=== PATIENT | male | born 1985 | race Caucasian/White ===

== ENCOUNTER 2016-07-04 16:14 | Emergency (ER) | payer BC ==
[2016-07-04 17:12] VITALS: BP 121/73
--- NOTE | 2016-07-04 17:27 | UC ---
Throat Pain/Nasal Lucien HPI - HPI Summary HPI Summary: ST, sinus congestion, productive cough. STarted 10 days ago, was getting better , then worsened 2d ago. Fever to 101. Fatigue, body aches, malaise. Kids ill at home. No asthma. Smoker, quit 3 weeks ago. No vomiting or diarrhea - History of Current Complaint Chief Complaint: UCRespiratory Stated Complaint: FLU LIKE SYMPTOMS, SORE THROAT Time Seen by Provider: 07/04/16 17:15 Hx Obtained From: Patient Onset/Duration: Gradual Onset, Lasting Days - 10 Severity: Moderate Cough: Productive Associated Signs & Symptoms: Positive: Dysphagia, Hoarseness, Sinus Discomfort, Nasal Discharge, Fever. Negative: FB Sensation, Drooling, Vomiting, Rash - Epiglottits Risk Factors Epiglottis Risk Factors: Negative - Allergies/Home Medications Allergies/Adverse Reactions: Allergies Allergy/AdvReac Type Severity Reaction Status Date / Time Meperidine [From Demerol HCl] Allergy Unknown Verified 07/04/16 17:06 Reaction Details Home Medications: Home Medications Acetaminophen [Tylenol] 650 mg PO Q4H PRN 07/04/16 [History Confirmed 07/04/16] Dextromethorphan-Phenylephrine [Daytime Multi Symptom Col] 1 cap PO BID PRN 09/15 [History Confirmed 07/04/16] PMH/Surg Hx/FS Hx/Imm Hx Previously Healthy: Yes - Surgical History Surgical History: Yes Surgery Procedure, Year, and Place: knee. wrist - Family History Known Family History: Positive: Hypertension - Social History Occupation: Employed Full-time Lives: With Family Alcohol Use: Occasionally Substance Use Type: None Smoking Status (MU): Former Smoker Type: Cigarettes When Did the Patient Quit Smoking/Using Tobacco: 3 weeks ago - Immunization History Most Recent Influenza Vaccination: 2016 Review of Systems Constitutional: Fever, Chills, Fatigue Skin: Negative Eyes: Negative ENT: Sore Throat, Ear Ache, Nasal Discharge Respiratory: Cough Cardiovascular: Negative Gastrointestinal: Negative Genitourinary: Negative Motor: Negative Neurovascular: Negative Musculoskeletal: Negative Neurological: Negative Psychological: Negative All Other Systems Reviewed And Are Negative: Yes Physical Exam Triage Information Reviewed: Yes Appearance: Well-Appearing, No Pain Distress, Well-Nourished Vital Signs: Initial Vital Signs Temp 97.9 F 07/04/16 17:07 Pulse 68 07/04/16 17:07 Resp 18 07/04/16 17:07 BP 121/73 07/04/16 17:07 Pulse Ox 97 07/04/16 17:07 Vital Signs Reviewed: Yes Eye Exam: Normal Eyes: Positive: Conjunctiva Clear ENT: Positive: Pharyngeal erythema, Nasal congestion, Nasal drainage, TMs normal , Tonsillar swelling, Muffled/hoarse voice - hoarse. Negative: Tonsillar exudate, Trismus Neck exam: Normal Neck: Positive: Supple Respiratory Exam: Normal Respiratory: Positive: Lungs clear, Normal breath sounds, No respiratory distress, No accessory muscle use Cardiovascular Exam: Normal Musculoskeletal Exam: Normal Neurological Exam: Normal Psychological Exam: Normal Skin Exam: Normal Diagnostics - Laboratory Diagnostic Studies Completed/Ordered: Strep pos Throat Pain/Nasal Course/Dx - Differential Dx/Diagnosis Differential Diagnosis/HQI/PQRI: Sinusitis, URI Provider Diagnoses: Strep throat Discharge - Discharge Plan Condition: Stable Disposition: HOME Prescriptions: Amoxicillin (*) 875 mg PO BID #20 tab Patient Education Materials: Strep Throat (ED) Forms: *Work Release Referrals: No Primary Care Phys,NOPCP [Primary Care Provider] -
== END 2016-07-04 17:47 | disposition home or self-care (01) ==
LOC: UCCORT 16:14
DX: J02.0 Streptococcal pharyngitis (principal); Z88.5 Allergy status to narcotic agent; Z87.891 Personal history of nicotine dependence
CPT/HCPCS: 87651; 99202; G0463

== ENCOUNTER 2016-10-06 14:48 | Emergency (ER) | payer BC ==
[2016-10-06 15:14] VITALS: BP 135/62
[2016-10-06] MEDS ORDERED: HYDROcodone/ACETAMIN 5-325 MG* 1 TAB PO ONE (15:33)
--- NOTE | 2016-10-06 16:07 | RAD ---
Indication: Right elbow pain. 4 views of the right elbow demonstrates anterior fat pad sign. There is no fracture noted. No other bone or joint abnormality is noted. IMPRESSION: NO FRACTURE OF THE RIGHT ELBOW IS NOTED.
--- NOTE | 2016-10-06 16:07 | RAD ---
Indication: Right shoulder pain after fall. 3 views of the right shoulder demonstrates AC joint arthritis. There is no fracture noted. No other bone or joint abnormality is noted. IMPRESSION: No fracture of the right shoulder is noted.
--- NOTE | 2016-10-06 16:23 | UC ---
Upper Extremity HPI - HPI Summary HPI Summary: fell in the barn landing on a metal tractor hitch with his right arm and elbow - History of Current Complaint Chief Complaint: UCUpperExtremity Stated Complaint: RIGHT ELBOW & SHOULDER PAIN Time Seen by Provider: 10/06/16 15:27 Hx Obtained From: Patient ?: No Onset/Duration: Sudden Onset, Lasting Hours, Still Present, Worse Since - last hour or sore Severity Initially: Moderate Severity Currently: Moderate Pain Intensity: 7 Pain Scale Used: 0-10 Numeric Location Of Pain: Is Discrete @ - right elbow Character: Aching, Throbbing Aggravating Factor(s): Movement Alleviating Factor(s): Nothing Associated Signs And Symptoms: Positive: Swelling Related History: Dominant Hand Right - Allergies/Home Medications Allergies/Adverse Reactions: Allergies Allergy/AdvReac Type Severity Reaction Status Date / Time Meperidine [From Demerol HCl] Allergy Unknown Verified 10/06/16 15:02 Reaction Details PMH/Surg Hx/FS Hx/Imm Hx Previously Healthy: Yes - Surgical History Surgical History: Yes Surgery Procedure, Year, and Place: knee. wrist - Family History Known Family History: Positive: Hypertension - Social History Occupation: Employed Full-time Lives: With Family Alcohol Use: Occasionally Substance Use Type: None Smoking Status (MU): Current Every Day Smoker Type: Cigarettes Amount Used/How Often: 1/2 PPD Length of Time of Smoking/Using Tobacco: 2 YRS When Did the Patient Quit Smoking/Using Tobacco: 3 weeks ago - Immunization History Most Recent Influenza Vaccination: 2015 Review of Systems Constitutional: Negative Skin: Negative Eyes: Negative ENT: Negative Respiratory: Negative Cardiovascular: Negative Gastrointestinal: Negative Genitourinary: Negative Motor: Negative Neurovascular: Negative Musculoskeletal: Arthralgia - right elbow and shoulder Neurological: Negative Psychological: Negative All Other Systems Reviewed And Are Negative: Yes Physical Exam Triage Information Reviewed: Yes Appearance: Well-Appearing, No Pain Distress, Well-Nourished Vital Signs: Initial Vital Signs Temp 98.8 F 10/06/16 14:54 Pulse 69 10/06/16 14:54 Resp 18 10/06/16 14:54 BP 135/62 10/06/16 14:54 Pulse Ox 98 10/06/16 14:54 Vital Signs Reviewed: Yes Eye Exam: Normal Eyes: Positive: Conjunctiva Clear ENT Exam: Normal ENT: Positive: Normal ENT inspection, Pharynx normal, Nasal congestion, Nasal drainage, TMs normal. Negative: Tonsillar swelling, Tonsillar exudate, Trismus , Muffled/hoarse voice Dental Exam: Normal Neck exam: Normal Neck: Positive: Supple, Nontender, No Lymphadenopathy Respiratory Exam: Normal Respiratory: Positive: Chest non-tender, Lungs clear, Normal breath sounds, No respiratory distress, No accessory muscle use Cardiovascular Exam: Normal Cardiovascular: Positive: RRR, No Murmur, Pulses Normal, Brisk Capillary Refill Abdominal Exam: Normal Abdomen Description: Positive: Nontender, No Organomegaly, Soft Bowel Sounds: Positive: Present Musculoskeletal Exam: Normal Musculoskeletal: Positive: Strength Limited @ - right elbow, ROM Limited @ - right elbow, Edema @ - right elboe Neurological Exam: Normal Neurological: Positive: Alert, Muscle Tone Normal Psychological Exam: Normal Skin Exam: Normal Diagnostics - Radiology No standard instances Xray Interpretation: No Acute Changes Radiology Interpretation Completed By: Radiologist Upper Extremity Course/Dx - Course Course Of Treatment: sling, rest rice elevation, follow with orthopedic MD early next week - Differential Dx/Diagnosis Differential Diagnosis/HQI/PQRI: Contusion, Fracture (Closed), Strain, Sprain Provider Diagnoses: Right elbow contision Discharge - Discharge Plan Condition: Stable Disposition: HOME Prescriptions: Ibuprofen TAB* [Motrin TAB* 600 MG] 600 mg PO Q6H PRN #30 tab PRN Reason: Pain Patient Education Materials: How to Use a Sling (GEN), Contusion in Adults (ED) , RICE Therapy (ED) Forms: *Work Release Referrals: Kenan Rain MD [Medical Doctor] - 3 Days No Primary Care Phys,NOPCP [Primary Care Provider] -
== END 2016-10-06 16:43 | disposition home or self-care (01) ==
LOC: UCCORT 14:48
DX: S50.01XA Contusion of right elbow, initial encounter (principal); W18.09XA Striking against other object with subsequent fall, initial encounter; Y93.9 Activity, unspecified; Y92.71 Barn as the place of occurrence of the external cause; Z88.5 Allergy status to narcotic agent; F17.210 Nicotine dependence, cigarettes, uncomplicated
CPT/HCPCS: 99213; G0463

== ENCOUNTER 2016-12-21 14:41 | Emergency (ER) | payer BC | END 2016-12-21 17:53 | disposition left against medical advice (07) | LOC: UCCORT 14:41 | DX: M25.561 Pain in right knee (principal); Z53.21 Procedure and treatment not carried out due to patient leaving prior to being seen by health care provider ==

== ENCOUNTER 2017-04-06 12:25 | Emergency (ER) | payer SELFPAY ==
[2017-04-06 12:41] VITALS: BP 149/77
[2017-04-06] MEDS ORDERED: Ibuprofen TAB* 400 MG PO ONE (12:46)
--- NOTE | 2017-04-06 12:46 | UC ---
Upper Extremity HPI - HPI Summary HPI Summary: pt presents with c/o left arm pain s/p using drill on concrete "tube" pt reports that drill bit broke and drill twisted his upper extremity causing pain in shoulder, elbow, forearm and wrist. - History of Current Complaint Chief Complaint: UCUpperExtremity Stated Complaint: LEFT ARM INJURY WC Time Seen by Provider: 04/06/17 12:29 Hx Obtained From: Patient ?: No Onset/Duration: Sudden Onset Severity Initially: Moderate Severity Currently: Moderate Location Of Pain: Is Diffuse - left upper extremity Character: Dull, Aching, Throbbing Aggravating Factor(s): Movement Alleviating Factor(s): Ice, Rest Associated Signs And Symptoms: Positive: Weakness Related History: Dominant Hand Left - Risk Factors Non-Orthopedic Risk Factor: Negative DVT Risk Factors: Negative Septic Arthritis Risk Factor: Negative Compartment Syndrome Risk Factors: Pain - Allergies/Home Medications Allergies/Adverse Reactions: Allergies Allergy/AdvReac Type Severity Reaction Status Date / Time Meperidine [From Demerol HCl] Allergy Unknown Verified 04/06/17 12:36 Reaction Details Home Medications: Home Medications Multivitamins/Minerals TAB* [Thera M Plus TAB*] 1 tab PO DAILY 04/06/17 [ History Confirmed 04/06/17] PMH/Surg Hx/FS Hx/Imm Hx Previously Healthy: Yes - Surgical History Surgical History: Yes Surgery Procedure, Year, and Place: Right Knee Arthroscopy, 2014; Right Forearm Ligaments Repaired, 2012; Right ACL, 2002 - Family History Known Family History: Positive: Hypertension - Social History Occupation: Employed Full-time Lives: With Family Alcohol Use: Occasionally Substance Use Type: None Smoking Status (MU): Former Smoker Type: Cigarettes Amount Used/How Often: 1/2 PPD Length of Time of Smoking/Using Tobacco: 2 YRS Have You Smoked in the Last Year: Yes When Did the Patient Quit Smoking/Using Tobacco: 3 weeks ago - Immunization History Most Recent Influenza Vaccination: Not the 2017/2018 Season Most Recent Tetanus Shot: Unknown Review of Systems Constitutional: Negative Skin: Other - scattered superficial abrasions Eyes: Negative ENT: Negative Respiratory: Negative Cardiovascular: Negative Gastrointestinal: Negative Genitourinary: Negative Motor: Decreased ROM - left upper extremity, Weakness - left upper extremity Musculoskeletal: Arthralgia - left upper extremity, Decreased ROM - left upper extremity, Myalgia - left upper extremity Neurological: Negative Psychological: Negative Is Patient Immunocompromised?: No All Other Systems Reviewed And Are Negative: Yes Physical Exam Triage Information Reviewed: Yes Appearance: Pain Distress Vital Signs: Initial Vital Signs Temp 98 F 04/06/17 12:33 Pulse 66 04/06/17 12:33 Resp 16 04/06/17 12:33 BP 149/77 04/06/17 12:33 Pulse Ox 100 04/06/17 12:33 Vital Signs Reviewed: Yes Eye Exam: Normal ENT Exam: Normal Respiratory Exam: Other Respiratory: Positive: Normal breath sounds Musculoskeletal Exam: Other Musculoskeletal: Positive: Strength Limited @ - left upper extremity generalized , ROM Limited @ - left upper extremity generalized, Other: - positive radial pulse, brisk capillary refill, Neurological Exam: Normal Psychological Exam: Normal Skin Exam: Other - warm, pink Upper Extremity Course/Dx - Course Course Of Treatment: Xray: IMPRESSION: NORMAL RADIOGRAPH OF THE LEFT SHOULDER, ELBOW AND WRIST. t needs to follow up with orthopedic provider for further evaluation - Differential Dx/Diagnosis Differential Diagnosis/HQI/PQRI: Fracture (Closed), Strain, Sprain Provider Diagnoses: Left upper extremity strain Discharge - Discharge Plan Condition: Stable Disposition: HOME Prescriptions: Cyclobenzaprine TAB* [Flexeril 10 MG TAB*] 10 mg PO TID PRN #15 tab PRN Reason: Pain Ibuprofen TAB* [Motrin TAB* 800 MG] 800 mg PO Q8H #30 tab Patient Education Materials: Muscle Strain (ED) Forms: *Work Release Referrals: No Primary Care Phys,NOPCP [Primary Care Provider] - Shawna Cruz MD [Medical Doctor] - As Soon As Possible Additional Instructions: Xray: IMPRESSION: NORMAL RADIOGRAPH OF THE LEFT SHOULDER, ELBOW AND WRIST. Please follow up with orthopedic provider for further evaluation
--- NOTE | 2017-04-06 13:47 | RAD ---
INDICATION: Pain from the left shoulder through the left upper extremity after "twisting injury" COMPARISON: None. TECHNIQUE: 4 views of the left shoulder, 4 views of the left elbow and 3 views of the left wrist were obtained. FINDINGS: The adequately corticated bones are in normal alignment. Joint spaces appear maintained. No fracture, dislocation or focal bony abnormality is seen. IMPRESSION: NORMAL RADIOGRAPH OF THE LEFT SHOULDER, ELBOW AND WRIST. If the patient's symptoms persist, follow-up imaging is recommended.
--- NOTE | 2017-04-06 22:02 | RAD ---
INDICATION: Left upper cavity pain after "twisting injury" COMPARISON: None. TECHNIQUE: 3 views of the left wrist and 4 views of the left elbow were obtained. REPORT: The visualized bones are properly aligned and well corticated. The joint spaces are normal.There is no fracture, dislocation or other focal osseous abnormality. IMPRESSION: Normal radiographs of the left wrist and elbow. If the patient's symptoms persist, follow-up imaging is recommended.
== END 2017-04-06 14:14 | disposition home or self-care (01) ==
LOC: UCCORT 12:25
DX: S56.912A Strain of unspecified muscles, fascia and tendons at forearm level, left arm, initial encounter (principal); X50.0XXA Overexertion from strenuous movement or load, initial encounter; Y93.9 Activity, unspecified; Y92.9 Unspecified place or not applicable; Y99.9 Unspecified external cause status; Z88.8 Allergy status to other drugs, medicaments and biological substances
CPT/HCPCS: 99213; A9270-GY; G0463

== ENCOUNTER 2017-10-31 10:06 | Emergency (ER) | payer BC ==
[2017-10-31 11:46] VITALS: BP 127/72
--- NOTE | 2017-10-31 12:13 | UC ---
Lower Extremity/Ankle HPI - HPI Summary HPI Summary: Right knee pain after he was helping move a calf from one place to another. He twisted right knee as he fell and then calf fell onto the knee as well. He has hx of two surgeries to the knee including ACL and meniscus repair. This occurred yesterday. - History of Current Complaint Chief Complaint: UCLowerExtremity Stated Complaint: KNEE PAIN (R) Time Seen by Provider: 10/31/17 11:59 Hx Obtained From: Patient Onset/Duration: Sudden Onset, Lasting Hours Severity Initially: Severe Severity Currently: Severe Pain Intensity: 8 Aggravating Factor(s): Standing, Ambulation Alleviating Factor(s): Rest, Elevation Able to Bear Weight: No - Risk Factors Gout Risk Factors: Negative DVT Risk Factors: Negative - Allergies/Home Medications Allergies/Adverse Reactions: Allergies Allergy/AdvReac Type Severity Reaction Status Date / Time meperidine Allergy Hives Verified 10/31/17 11:40 Home Medications: Home Medications Ibuprofen TAB* [Advil TAB*] 400 mg PO Q6H PRN 10/31/17 [History Confirmed ] PMH/Surg Hx/FS Hx/Imm Hx Previously Healthy: No - knee acl tear- right. - Surgical History Surgical History: Yes Surgery Procedure, Year, and Place: Right Knee Arthroscopy, 2014; Right Forearm Ligaments Repaired, 2012; Right ACL, 2002 - Family History Known Family History: Positive: Hypertension - Social History Occupation: Employed Full-time Lives: With Family Alcohol Use: None Substance Use Type: None Smoking Status (MU): Light Every Day Tobacco Smoker Type: Cigarettes Amount Used/How Often: 1/4 PPD Length of Time of Smoking/Using Tobacco: 2 YRS Have You Smoked in the Last Year: Yes When Did the Patient Quit Smoking/Using Tobacco: 3 weeks ago - Immunization History Most Recent Influenza Vaccination: Not the 2017/2017 Season Most Recent Tetanus Shot: Unknown Review of Systems Musculoskeletal: Arthralgia All Other Systems Reviewed And Are Negative: Yes Physical Exam Triage Information Reviewed: Yes Appearance: Well-Nourished, Pain Distress - obvious pain with manipulation of the knee. Vital Signs: Initial Vital Signs Temp 98.8 F 10/31/17 11:42 Pulse 94 10/31/17 11:42 Resp 20 10/31/17 11:42 BP 127/72 10/31/17 11:42 Pulse Ox 99 10/31/17 11:42 Vital Signs Reviewed: Yes Eyes: Positive: Conjunctiva Clear. Negative: Conjunctiva Inflamed ENT: Positive: Normal ENT inspection Neck: Positive: Supple, Nontender. Negative: Nuchal Rigidity Respiratory: Negative: Respiratory distress, Accessory muscle use Cardiovascular: Positive: Brisk Capillary Refill Abdomen Description: Negative: Distended Musculoskeletal Exam: Other - right knee moderate effusion. THere is diffuse tenderness. There is good stability with valgus and varus stress. Lochmans appears intact but no good endpoint could be appreciated due to pain. Neurological: Positive: Alert, Muscle Tone Normal. Negative: Fatigued Psychological: Positive: Age Appropriate Behavior Skin: Negative: rashes Diagnostics - Radiology No standard instances Xray Interpretation: No Acute Changes Radiology Interpretation Completed By: ED Physician Lower Extremity Course/Dx - Differential Dx/Diagnosis Provider Diagnoses: knee sprain Discharge - Sign-Out/Discharge Documenting (check all that apply): Discharge/Admit/Transfer - Discharge Plan Condition: Good Disposition: HOME Patient Education Materials: Knee Sprain (ED) Referrals: No Primary Care Phys,NOPCP [Primary Care Provider] - Additional Instructions: Call your orthopedic doctor to set up an appointment to follow up. - Billing Disposition and Condition Condition: GOOD Disposition: HOME
--- NOTE | 2017-10-31 12:39 | RAD ---
INDICATION: Right knee injury. TECHNIQUE: 4 views of the right knee were obtained. FINDINGS: The bones are in normal alignment. The patient is status post anterior cruciate ligament repair. There is a joint effusion present. No fracture is seen. Joint spaces appear maintained. IMPRESSION: 1. JOINT EFFUSION, NO FRACTURE IS SEEN. 2. STATUS POST ANTERIOR CRUCIATE LIGAMENT REPAIR.
== END 2017-10-31 12:53 | disposition home or self-care (01) ==
LOC: UCCORT 10:06
DX: S83.91XA Sprain of unspecified site of right knee, initial encounter (principal); W18.39XA Other fall on same level, initial encounter; W55.22XA Struck by cow, initial encounter; Y93.89 Activity, other specified; Y92.79 Other farm location as the place of occurrence of the external cause; Z88.5 Allergy status to narcotic agent; F17.210 Nicotine dependence, cigarettes, uncomplicated
CPT/HCPCS: 99213; G0463

== ENCOUNTER 2017-12-13 14:28 | Emergency (ER) | payer BC ==
[2017-12-13 14:59] VITALS: BP 128/82
--- NOTE | 2017-12-13 15:31 | UC ---
Complaint Male HPI - HPI Summary HPI Summary: Notified by previous female sexual partner that she has been diagnosed with trichomonas. Had one unprotected sexual encounter with her about 2 months ago, and has no urinary symptoms. No history of STI's. Would like testing but defer treatment until confirmed test available. Not currently sexually active; last previous partner was 18 months ago. - History of Current Complaint Chief Complaint: UCGU Stated Complaint: PERSONAL Time Seen by Provider: 12/13/17 15:10 Hx Obtained From: Patient Onset/Duration: Other - exposure about 2 months ago. Pain Intensity: 0 - Allergies/Home Medications Allergies/Adverse Reactions: Allergies Allergy/AdvReac Type Severity Reaction Status Date / Time meperidine Allergy Hives Verified 12/13/17 15:00 PMH/Surg Hx/FS Hx/Imm Hx Previously Healthy: Yes - Surgical History Surgical History: Yes Surgery Procedure, Year, and Place: Right Knee Arthroscopy, 2014; Right Forearm Ligaments Repaired, 2012; Right ACL, 2002 - Family History Known Family History: Positive: Hypertension - Social History Occupation: Employed Full-time Lives: With Family Alcohol Use: Occasionally Substance Use Type: None Smoking Status (MU): Light Every Day Tobacco Smoker Type: Cigarettes Amount Used/How Often: 1/4 PPD Length of Time of Smoking/Using Tobacco: 2 YRS Have You Smoked in the Last Year: Yes When Did the Patient Quit Smoking/Using Tobacco: 3 weeks ago - Immunization History Most Recent Influenza Vaccination: Not the 2016/2017 Season Most Recent Tetanus Shot: Unknown Review of Systems Constitutional: Negative Skin: Negative Eyes: Negative ENT: Negative Respiratory: Negative Cardiovascular: Negative Gastrointestinal: Negative Genitourinary: Negative Motor: Negative Neurovascular: Negative Musculoskeletal: Negative Neurological: Negative Psychological: Negative Is Patient Immunocompromised?: No All Other Systems Reviewed And Are Negative: Yes Physical Exam Triage Information Reviewed: Yes Appearance: Well-Appearing Vital Signs: Initial Vital Signs Temp 100.1 F 12/13/17 14:50 Pulse 84 12/13/17 14:50 Resp 20 12/13/17 14:50 BP 128/82 12/13/17 14:50 Pulse Ox 99 12/13/17 14:50 Vital Signs Reviewed: Yes ENT: Positive: Pharynx normal Neck: Positive: No Lymphadenopathy Respiratory: Positive: Lungs clear Cardiovascular: Positive: RRR, No Murmur Complaint Male Course/Dx - Course Course Of Treatment: No treatment; would like testing before initiation of any treatment. - Differential Dx/Diagnosis Differential Diagnosis/HQI/PQRI: Other - STI Provider Diagnoses: exposure to Trichomonas Discharge - Sign-Out/Discharge Documenting (check all that apply): Discharge/Admit/Transfer - Discharge Plan Condition: Stable Disposition: HOME Patient Education Materials: Sexually Transmitted Diseases (ED) Referrals: No Primary Care Phys,NOPCP [Primary Care Provider] - Additional Instructions: As discussed, you will wait for testing before initiating any treatment for possible trichomonas. You will be additionally screened for Chlamydia and gonorrhea. - Billing Disposition and Condition Condition: STABLE Disposition: Home
--- NOTE | 2017-12-16 07:18 | UC ---
- Progress Note Progress Note: Came specifically for Trichomonas screen, but test was cancelled due to "age of specimen". Please check with the lab as to what the requirements are for the sample and arrange repeat testing. GC and Chlamydia tests were negative. Discharge - Sign-Out/Discharge Documenting (check all that apply): Discharge/Admit/Transfer - Discharge Plan Condition: Stable Disposition: HOME Patient Education Materials: Sexually Transmitted Diseases (ED) Referrals: No Primary Care Phys,NOPCP [Primary Care Provider] - Additional Instructions: As discussed, you will wait for testing before initiating any treatment for possible trichomonas. You will be additionally screened for Chlamydia and gonorrhea. - Billing Disposition and Condition Condition: STABLE Disposition: Home
== END 2017-12-13 15:58 | disposition home or self-care (01) ==
LOC: UCCORT 14:28
DX: Z20.2 Contact with and (suspected) exposure to infections with a predominantly sexual mode of transmission (principal); Z88.5 Allergy status to narcotic agent; Z87.891 Personal history of nicotine dependence
CPT/HCPCS: 87491; 87591; 87661; 99211; G0463

== ENCOUNTER 2019-05-11 08:31 | Emergency (ER) | payer SELFPAY ==
[2019-05-11 08:47] VITALS: BP 140/77
[2019-05-11] MEDS ORDERED: Fluorescein Sodium TOPICAL* 1 MG TEST STRIP OPHTHALMIC ONE (08:57)
[2019-05-11] MEDS ORDERED: Eye Irrigation Solution 30 ML BOTTLE RIGHT EYE ONE (08:59)
--- NOTE | 2019-05-11 08:59 | UC ---
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 Denies foreign body or injury, no recent illness. +photophobia, no visual disturbance. - History of Current Complaint Chief Complaint: UCEye Stated Complaint: RT EYE COMPLAINT Time Seen by Provider: 05/11/19 08:46 Hx Obtained From: Patient Onset/Duration: Sudden Onset, Lasting Hours Timing: Constant Pain Intensity: 1 Aggravating Factor(s): Light Alleviating Factor(s): Nothing Associated Signs And Symptoms: Positive: Photophobia, Drainage (Clear). 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 - Allergies/Home Medications Allergies/Adverse Reactions: Allergies Allergy/AdvReac Type Severity Reaction Status Date / Time meperidine Allergy Hives Verified 05/11/19 08:43 Home Medications: Home Medications Vitamin THERAPEUTIC TAB* [Theragran TAB*] 1 tab PO DAILY 05/11/19 [History Confirmed 05/11/19] PMH/Surg Hx/FS Hx/Imm Hx Previously Healthy: Yes - Surgical History Surgical History: Yes Surgery Procedure, Year, and Place: Right Knee Arthroscopy, 2014; Right Forearm Ligaments Repaired, 2012; Right ACL, 2002 - Family History Known Family History: Positive: Hypertension - Social History Alcohol Use: Occasionally Substance Use Type: None Smoking Status (MU): Light Every Day Tobacco Smoker Type: Cigarettes Amount Used/How Often: <1/2 PPD Length of Time of Smoking/Using Tobacco: Since Age 29 Have You Smoked in the Last Year: Yes When Did the Patient Quit Smoking/Using Tobacco: 3 weeks ago - Immunization History Most Recent Influenza Vaccination: Not the 2017/2018 Season Most Recent Tetanus Shot: Unknown Review of Systems All Other Systems Reviewed And Are Negative: Yes Constitutional: Positive: Negative Skin: Positive: Negative Eyes: Positive: Drainage - clear, Eye Redness, Photophobia. Negative: Blurred Vision, Diplopia ENT: Positive: Nasal Discharge - clear with eye tearing Respiratory: Positive: Negative Cardiovascular: Positive: Negative Gastrointestinal: Positive: Negative Genitourinary: Positive: Negative Motor: Positive: Negative Neurovascular: Positive: Negative Musculoskeletal: Positive: Negative Neurological: Positive: Negative Psychological: Positive: Negative Is Patient Immunocompromised?: Yes Physical Exam Triage Information Reviewed: Yes Appearance: Well-Appearing Vital Signs: Initial Vital Signs Temp 98.2 F 05/11/19 08:39 Pulse 66 05/11/19 08:39 Resp 16 05/11/19 08:39 BP 140/77 05/11/19 08:39 Pulse Ox 100 05/11/19 08:39 Vital Signs Reviewed: Yes Eyes: Positive: Conjunctiva Inflamed, Discharge - clear, Other: - abrasion at 3 o'clock position of cornea. No foreign body identified. EOMI. ENT: Positive: Pharynx normal, Nasal drainage - clear, TMs normal. Negative: Sinus tenderness Neck: Positive: Supple, Nontender, No Lymphadenopathy Respiratory: Positive: Lungs clear, Normal breath sounds Cardiovascular: Positive: RRR, No Murmur Abdomen Description: Positive: Nontender, Soft Musculoskeletal Exam: Normal Neurological Exam: Normal Psychological Exam: Normal Skin Exam: Normal Eye Complaint Course/Dx - Differential Dx/Diagnosis Provider Diagnosis: Corneal abrasion, right Discharge ED - Sign-Out/Discharge Documenting (check all that apply): Patient Departure All imaging exams completed and their final reports reviewed: Yes - Discharge Plan Condition: Stable Disposition: HOME Prescriptions: Erythromycin OPHTH.OINT* [Ilotycin OPHTH.OINT*] 1 applic RIGHT EYE BID 7 Days # 1 tube Referrals: No Primary Care Phys,NOPCP [Primary Care Provider] - Additional Instructions: Rest eye today, apply ointment twice daily for the next week. If pain/redenss persists >72 hours or of visual disturbance develops, follow-up with an ophthomologist. - Billing Disposition and Condition Condition: STABLE Disposition: Home
[2019-05-11] MEDS ORDERED: Tetracaine 0.5% OPTH.SOL 4 ML* 1 DROP BTL RIGHT EYE ONE (09:13)
[2019-05-12] MEDS ORDERED: Vitamin THERAPEUTIC TAB PO SCH (09:00)
== END 2019-05-11 09:34 | disposition home or self-care (01) ==
LOC: UCCORT 08:31
DX: S05.01XA Injury of conjunctiva and corneal abrasion without foreign body, right eye, initial encounter (principal); X58.XXXA Exposure to other specified factors, initial encounter; Y92.9 Unspecified place or not applicable; Z88.5 Allergy status to narcotic agent; F17.210 Nicotine dependence, cigarettes, uncomplicated
CPT/HCPCS: 99212; A9270-GY; G0463